=== PATIENT | female | born 1995 | race Caucasian/White ===

== ENCOUNTER 2017-03-21 21:08 | Inpatient (IN) ==
--- NOTE | 2017-03-21 21:49 | Emergency Department Note ---
Disposition Clinical Impression: Pyelonephritis Disposition: Admitted As Inpatient Condition: Good Referrals: Zachary,Angeles Guy CNP [Primary Care Provider] - Forms: ED Satisfaction Letter, Work/School Release General Adult HPI - General Chief complaint: ED Abdominal Pain Stated complaint: right side pain,fever,vomiting Source: patient Limitations: no limitations Nursing Notes Reviewed: Yes Vital Signs Reviewed: Yes - History of Present Illness HPI Narrative: Patient seen it [facility] earlier today. Seen today for right flank pain. Positive CVA tenderness. No abdominal tenderness. Worse with movement. Better with rest. Radiation of pain into the abdomen. Patient was diagnosed with a urinary tract infection and concern for pyelonephritis. At the time the patient was not having a fever and her nausea was controlled. She arrived home and spiked a temperature of 101. The patient vomited and was unable to keep water down. Presents tachycardic with a heart rate of 120. The patient's previous lab work as well as renal ultrasound were evaluated. Patient was brought in for pyelonephritis failed outpatient management. Pain Scale: 7 - Related Data Home Medications Medication Instructions Recorded Confirmed Pedi Mv No.79/Ferrous Fumarate 1 tab PO DAILY 03/21/17 03/21/17 [Flintstones with Iron Tab Chew] Previous Rx's Medication Instructions Recorded Metoclopramide [Reglan] 10 mg PO Q8H PRN 5 Days #15 tablet 03/21/17 Metoclopramide [Reglan] 10 mg PO TID PRN #200 mls 03/21/17 cephALEXin [Keflex] 500 mg PO TID 14 Days #42 capsule 03/21/17 Allergies Allergy/AdvReac Type Severity Reaction Status Date / Time No Known Allergies Allergy Verified 02/01/17 11:13 Review of Systems: CONSTITUTIONAL: Fevers and chills and weakness and fatigue HEENT: Eyes: No visual changes. Ears, Nose, Throat: No hearing loss, difficulty talking or unable to swallow. SKIN: No rash or itching. CARDIOVASCULAR: No chest pain, chest pressure or chest discomfort. No palpitations or edema. RESPIRATORY: No shortness of breath, cough or sputum. GASTROINTESTINAL: No anorexia, nausea, vomiting or diarrhea. No abdominal pain or blood. Right-sided flank pain. GENITOURINARY: Urinary frequency without burning. NEUROLOGICAL: No headache, dizziness, syncope, paralysis, ataxia, numbness or tingling in the extremities. No change in bowel or bladder control. MUSCULOSKELETAL: No muscle pain, back pain, joint pain or stiffness. Past Medical History - Past Medical History Medical history: Reports: SVT Psychiatric history: Reports: anxiety, depression WEB DEVELOPMENT INTERN history: Reports: no WEB DEVELOPMENT INTERN history : 2 Para: 0 Ab: 1 - Social History Smoking Status: Never smoker Smokeless Tobacco Status: No Alcohol use: Reports: none Drug use: Reports: none Physical Exam General appearance: NAD, conversant Eyes: anicteric sclerae, moist conjunctivae; PERRL HENT: Atraumatic; oropharynx clear with moist mucous membranes and no mucosal ulcerations Neck: Normal inspection; Trachea midline; FROM, supple Lungs: CTA, with normal respiratory effort and no intercostal retractions CV: RRR, no MRGs Abdomen: Soft, non-tender; no rebound or gaurding; positive right-sided CVA tenderness. Extremities: No peripheral edema or extremity lymphadenopathy Skin: Normal temperature; no rash, ulcers or lesions Psych: Appropriate mood and affect Neuro: alert and oriented to person, place and time - General General appearance: alert, in no apparent distress Course - Consultations Consultation #1: Discussed with Dr. Still. Patient accepted for admission. Time: 21:57 Vital Signs Temperature 100.3 F H 03/21/17 21:30 Pulse Rate 125 03/21/17 21:30 Respiratory Rate 20 03/21/17 21:30 Blood Pressure 99/50 03/21/17 21:30 O2 Sat by Pulse Oximetry 100 03/21/17 21:30 Temperature 100.3 F H 03/21/17 21:30 Pulse Rate 125 03/21/17 21:30 Respiratory Rate 20 03/21/17 21:30 Blood Pressure 99/50 03/21/17 21:30 O2 Sat by Pulse Oximetry 100 03/21/17 21:30 Oxygen Delivery Oxygen Delivery Room Air Medical Decision Making - Lab Data Lab Results 03/21/17 03/21/17 Range/Units 21:45 21:45 Urine Color Yellow (Yellow) Urine Clarity Cloudy A (Clear) Urine pH 6.0 (5.0-8.0) pH Units Ur Specific [place] 1.015 (1.010-1.025) Urine Protein Trace (Neg-Trace) mg/dL Urine Glucose (UA) Normal (Normal) mg/dL Urine Ketones >=160 H (Negative) mg/dL Urine Blood Trace H (Negative) Urine Nitrite Positive A (Negative) Urine Bilirubin Negative (Negative) Urine Urobilinogen Normal (Normal) mg/dL Ur Leukocyte Esterase Large H (Negative) Urine Microscopic RBC 0-3 (0-3) per hpf Urine Microscopic WBC TNTC H (0-3) per hpf Ur Squamous Epith Cells Many H (None-Few) per lpf Urine Bacteria Many H (None-Few) per hpf Hyaline Casts None Seen (None-Few) per lpf Urine Test Positive A (Negative)
[2017-03-21 21:53] LABS: Bilirubin,Urine Negative (Negative); Blood,Urine Trace (Negative); Clarity,Urine Cloudy (Clear); Color,Urine Yellow (Yellow); Glucose,Urine (UA) Normal (Normal); Ketones,Urine >=160 mg/dL (Negative); Leukocyte Esterase,Urine Large (Negative); Nitrite,Urine Positive (Negative); Protein,Urine Trace mg/dL (Neg-Trace); Specific Gravity,Urine 1.015 (1.010-1.025); Urobilinogen,Urine Normal (Normal)
[2017-03-21] MEDS ORDERED: 0.9 % Sodium Chloride 1,000 ML IVC ONE (21:53)
[2017-03-21] MEDS ORDERED: *HR* Promethazine 25 MG/ML VIAL IVP ONE (21:54)
[2017-03-21 21:55] LABS: Bacteria,Urine Many per hpf (None-Few); Hyaline Casts,Urine None Seen per lpf (None-Few); RBC,Urine 0-3 per hpf (0-3); Squamous Epithelial Cell,Urine Many per lpf (None-Few); WBC,Urine TNTC per hpf (0-3)
--- NOTE | 2017-03-21 21:55 | Emergency Department Note ---
START Narrative - START START: I examined this patient and my medical decision-making was reviewed with the Resident Physician. I agree with the documented findings, disposition and treatment plan as described except to the extent set forth below. Patient was independently seen and evaluated by myself. Patient was seen with the emergency medicine resident Ozzy Angel. Please see copy of her notes for details of this ED encounter management and disposition. Briefly: 21-year-old female seen earlier in the day for pyelonephritis she is she was given antiemetics analgesics and antibiotics. Patient is become sicker unable to keep medicine down with increasing pain. She was febrile and borderline hypotensive. Patient with IV fluids IV antibiotics will be admitted for failure of outpatient treatment for and pyelonephritis. Patient to be admitted in stable condition
[2017-03-22] MEDS ORDERED: Ondansetron 4 MG/2 ML VIAL IVP PRN (00:51)
[2017-03-22] MEDS ORDERED: Acetaminophen 325 MG TABLET PO PRN (00:53)
--- NOTE | 2017-03-22 00:59 | OB/GYN History & Physical ---
Date of Encounter: 03/22/17 Time of Encounter: 00:55 Assessment and Plan (1) 14 weeks gestation of Current visit: Yes Status: Acute Normal u/s earlier today. (2) Hyperemesis gravidarum Current visit: Yes Status: Acute Will give IV Zofran. (3) Pyelonephritis Current visit: Yes Status: Acute Pt with normal WBC but UA and exam suspicious for Pyelonephritis. She failed home tx with 2 admissions to ER today b/c of n/v and fever. Will give Rocephin daily. and recheck WBC in am. (4) RUQ pain Current visit: Yes Status: Acute Likely secondary to pyelonephitis. She had normal RUQ u/s. History of Present Illness Chief complaint: right flank pain HPI: Ms. Catherine is a 21 year old female female at 14w2d presents with c/o right flank pain, n/v and fever and chills. This has been complicated by hyperemesis which had recently been somewhat better. For last few days has been having Rt CVAT and now with radiation into RUQ. She has had inability to keep PO down for last couple of days despite antiemetics. This evening she had fever and bilious emesis. She denies dysuria, she does report frequency and urine is cloudy. She has not yet movement. Earlier today she was in ER and had normal RUQ u/s, Rt renal u/s and u/s. Her WBC count was normal and she had no fever therefore she was first sent home for attempted out patient tx. Past Med Surg Social Fam HX - Past Medical History Source: patient, old records reviewed Medical history: SVT Psychiatric history: anxiety, depression - Social History Smoking Status: Never smoker Smokeless Tobacco Status: No Alcohol use: none Drug use: none Obstetrical History - Pregnancies : 1 Medications and Allergies Metoclopramide [Reglan] 10 mg PO Q8H PRN 5 Days #15 tablet 03/21/17 [Rx] Metoclopramide [Reglan] 10 mg PO TID PRN #200 mls 03/21/17 [Rx] Pedi Mv No.79/Ferrous Fumarate [Flintstones with Iron Tab Chew] 1 tab PO DAILY 03/21/17 [History] cephALEXin [Keflex] 500 mg PO TID 14 Days #42 capsule 03/21/17 [Rx] 3 Allergy/AdvReac Type Severity Reaction Status Date / Time No Known Allergies Allergy Verified 02/01/17 11:13 Exam - Vital Signs Vital signs: Initial Vital Signs Temp Pulse Resp BP Pulse Ox 100.3 F H 125 20 99/50 100 03/21/17 21:30 03/21/17 21:30 03/21/17 21:30 03/21/17 21:30 03/21/17 21:30 - Constitutional Constitutional: well developed, no acute distress - HEENT HEENT: EOMI, PERRL, Mucus Membranes Dry - Neck Neck exam: full ROM - Lungs Respiratory exam: CTAB - Cardiovascular Cardiovascular exam: RRR - Abdomen Abdomen: Present: gravid, non tender Abdomen detail: right upper quadrant: tenderness - Extremities Extremities exam: full ROM Deep Tendon Reflex Grade: 2+ Normal - Comments Comments: Pt has right CVAT Results Abnormal lab results Urine Clarity Cloudy (Clear) A 03/21/17 21:45 Urine Ketones >=160 mg/dL (Negative) H 03/21/17 21:45 Urine Blood Trace (Negative) H 03/21/17 21:45 Urine Nitrite Positive (Negative) A 03/21/17 21:45 Ur Leukocyte Esterase Large (Negative) H 03/21/17 21:45 Urine Microscopic WBC TNTC per hpf (0-3) H 03/21/17 21:45 Ur Squamous Epith Cells Many per lpf (None-Few) H 03/21/17 21:45 Urine Bacteria Many per hpf (None-Few) H 03/21/17 21:45 Urine Test Positive (Negative) A 03/21/17 21:45 All other labs normal.
[2017-03-22] MEDS ORDERED: *HR* HYDROcodone/Acet 5/325 mg TABLET PO PRN (01:05)
[2017-03-22] MEDS: D5% in Lactated Ringers 1,000 ML IVC SCH ×3 (01:37→18:12)
[2017-03-22] MEDS: *HR* HYDROmorphone (PF) 1 MG/ML SYRINGE IVP PRN ×3 (04:54→19:22)
[2017-03-22 05:40] LABS: Basophils % 0.3 %; Eosinophils % 0.3 %; Hematocrit 29.2 % (35.3-44.9); Immature Granulocytes % 0.4 % (0-4); Lymphocytes % 14.9 %; Mean Corpuscular HGB Conc 34.2 g/dL (31.6-35.5); Mean Corpuscular Hemoglobin 30.8 pg (28.0-33.3); Mean Corpuscular Volume 89.8 fL (83.0-100.0); Mean Platelet Volume 10.5 fL (9.4-12.4); Monocytes # 0.6 K/mcL (0.0-1.3); Monocytes % 9.2 %; Neutrophils # 5.1 K/mcL (1.6-8.9); Platelet Count 141 K/mcL (140-400); Red Blood Count 3.25 M/mcL (3.82-4.97); Red Cell Distribution Width 13.7 % (11.5-14.5); Segmented Neutrophils % 74.9 %
--- NOTE | 2017-03-22 07:33 | OB/GYN Progress Note ---
Date of Encounter: 03/22/17 Time of Encounter: 07:30 - Assessment and Plan (1) 14 weeks gestation of Current Visit: Yes Status: Acute Normal u/s earlier today. (2) Hyperemesis gravidarum Current Visit: Yes Status: Acute Will give IV Zofran. 03/22- Pt s/p IV Zofran and tolerating some liquids and dry cereal this am. Will cont. IVF. (3) Pyelonephritis Current Visit: Yes Status: Acute Pt with normal WBC but UA and exam suspicious for Pyelonephritis. She failed home tx with 2 admissions to ER today b/c of n/v and fever. Will give Rocephin daily. and recheck WBC in am 03/22 07:34- Pt AF since 23:34 last pm. Still with significant rt CVAT. Will cont. IVF. Cont. pain medications as needed. (4) RUQ pain Current Visit: Yes Status: Acute Likely secondary to pyelonephitis. She had normal RUQ u/s. 03/22 07:30- RUQ pain resolved. Subjective - Subjective Principal diagnosis: pyelonephritis at 14 weeks EGA Interval history: Pt without further chills, still with significant right flank pain and she received Dilaudid at 05:00. Has been able to tolerate dry diet this am. Objective - Vital Signs Vital Signs: Vital Signs Temp Pulse Resp BP Pulse Ox 03/22/17 05:08 98.5 F 72 18 109/67 100 03/22/17 00:52 98.8 F 76 20 85/45 96 03/21/17 23:37 100.6 F H 91 20 89/50 98 03/21/17 22:23 16 104/62 Intake and Output 03/21/17 03/21/17 03/22/17 15:59 23:59 07:59 Intake Total 1000 / 1000 Output Total 750 / 750 Balance 250 / 250 Intake: IV Fluids 1000 / 1000 0.9 % Sodium Chloride 1,000 ML 1000 / 1000 @ 3750 mls/hr IVC .Q16M ONE Rx# :[id number] Output: Urine 750 / 750 Other: Stool Characteristics Normal for Patient - Exam FHR: auscultation normal Auscultation: bilateral: normal Abdomen: Present: soft Comments: + rt CVAT - Labs Labs: Abnormal lab results RBC 3.25 M/mcL (3.82-4.97) L 03/22/17 05:26 Hgb 10.0 g/dL (11.5-15.4) L D 03/22/17 05:26 Hct 29.2 % (35.3-44.9) L 03/22/17 05:26 Urine Clarity Cloudy (Clear) A 03/21/17 21:45 Urine Ketones >=160 mg/dL (Negative) H 03/21/17 21:45 Urine Blood Trace (Negative) H 03/21/17 21:45 Urine Nitrite Positive (Negative) A 03/21/17 21:45 Ur Leukocyte Esterase Large (Negative) H 03/21/17 21:45 Urine Microscopic WBC TNTC per hpf (0-3) H 03/21/17 21:45 Ur Squamous Epith Cells Many per lpf (None-Few) H 03/21/17 21:45 Urine Bacteria Many per hpf (None-Few) H 03/21/17 21:45 Urine Test Positive (Negative) A 03/21/17 21:45
[2017-03-22] MEDS: cefTRIAXone 1,000 MG in Water for inj. (sterile) 10 ML IVP SCH (09:04)
[2017-03-23] MEDS: D5% in Lactated Ringers 1,000 ML IVC SCH (02:20)
[2017-03-23] MEDS: *HR* HYDROmorphone (PF) 1 MG/ML SYRINGE IVP PRN (04:44)
[2017-03-23] MEDS ORDERED: HYDROcodone/Acet 5-217 mg/10mL 10 ML UDC PO PRN (08:57)
[2017-03-23] MEDS: cefTRIAXone 1,000 MG in Water for inj. (sterile) 10 ML IVP SCH (09:03)
--- NOTE | 2017-03-23 10:27 | Discharge Summary ---
Date of Encounter: 03/23/17 Time of Encounter: 10:29 - Discharge Diagnosis (1) 14 weeks gestation of Priority: Secondary Status: Acute Comments: FHT 132 BPM via doppler this am. (2) Hyperemesis gravidarum Priority: Secondary Status: Acute Comments: Pt doing well on zofran. (3) Pyelonephritis Priority: Primary Status: Acute Comments: Pain has improved. Discharge home on Keflex liquid with precautions. Follow-up culture results. - Discharge Medications Home Medications: Metoclopramide [Reglan] 10 mg PO Q8H PRN 5 Days #15 tablet 03/21/17 [Rx] Metoclopramide [Reglan] 10 mg PO TID PRN #200 mls 03/21/17 [Rx] Pedi Mv No.79/Ferrous Fumarate [Flintstones with Iron Tab Chew] 1 tab PO DAILY 03/21/17 [History] cephALEXin [Keflex] 500 mg PO TID 14 Days #42 capsule 03/21/17 [Rx] Allergies/Adverse Reactions: 3 Allergy/AdvReac Type Severity Reaction Status Date / Time No Known Allergies Allergy Verified 02/01/17 11:13 Data Procedures and tests throughout hospitalization: Laboratory Tests 03/22/17 05:26 WBC 6.8 RBC 3.25 L Hgb 10.0 L D Hct 29.2 L MCV 89.8 MCH 30.8 MCHC 34.2 RDW 13.7 Plt Count 141 MPV 10.5 Immature Gran % 0.4 Seg Neutrophils % 74.9 Lymphocytes % 14.9 Monocytes % 9.2 Eosinophils % 0.3 Basophils % 0.3 Neutrophils # 5.1 Lymphocytes # 1.0 Monocytes # 0.6 Eosinophils # 0.0 Basophils # 0.0 Date of admission: 03/21/17 21:57 Primary care physician: Angeles Sharma CNP Discharging clinician: Helene Carranza Anticipated date of discharge: 03/23/17 - Patient Status Disposition: Home, Self-Care Condition: Good Functional capacity at discharge: independent ambulation Overall status at discharge: patient is progressing back to baseline - Discharge Instructions Follow Up With: Angeles Sharma CNP [Primary Care Provider] - Jean Claude Still MD [Partnered Physician] - - Diet and Activity Activity: increase activity as tolerated Diet: regular diet 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 She received IV rocephin and dilaudid for pain. Her pain improved and she will be discharged home once tolerating PO antibiotics and PO pain medication. Culture pending. Will follow-up sensitivity to confirm appropriate treatment. Time Attestation: Total time spent providing and/or coordinating discharge services: Time Spent: Less than 30 minutes Exam - Constitutional Vitals: Temp Pulse Resp BP Pulse Ox 98.3 F 72 12 100/59 98 03/23/17 07:45 03/23/17 07:45 03/23/17 07:45 03/23/17 07:45 03/23/17 07:45 General appearance IM: A&O X 3, pleasant, no acute distress - Respiratory Respiratory exam: Present: CTAB - Cardiovascular Cardiovascular exam IM: Present: RRR, +S1, +S2 - GI/Abdominal GI/Abdominal exam IM: soft - Additional comments: below umbilicus, appropriate for gestational age - Extremities Exam Extremities exam IM: Present: normal inspection - Neurological Exam Neurological exam: normal gait, oriented X3 - Other Additional findings: + right CVAT
[2017-03-23] MEDS ORDERED: cephALEXin 250 MG/5 ML UDC PO SCH (10:30)
[2017-03-23 11:44] VITALS: BP 101/62
== END 2017-03-23 15:15 | disposition home or self-care (01) | DRG 781 ==
LOC: 1NENUOBS 21:08 → EMEROO 21:08 → 1NENUOBS 22:24 → UNDODISOB 03-23 15:15
PROVIDERS: ADMIT Obstetrics & Gynecology; ATTEND Obstetrics & Gynecology

== ENCOUNTER 2017-09-11 22:25 | Inpatient (IN) ==
[2017-09-11 17:30] LABS: Amphetamine Screen,Urine Negative ng/mL (Cutoff=1000); Barbiturate Screen,Urine Negative ng/mL (Cutoff=200); Benzodiazepines Screen,Urine Negative ng/mL (Cutoff=200); Cannabinoid Screen,Urine Negative ng/mL (Cutoff = 50); Cocaine Screen,Urine Negative ng/mL (Cutoff= 300); Opiate Screen,Urine Negative ng/mL (Cutoff=300); Phencyclidine Screen,Urine Negative ng/mL (Cutoff=25)
--- NOTE | 2017-09-11 18:34 | OB/GYN Progress Note ---
Date of Encounter: 09/11/17 Time of Encounter: 18:27 - Assessment and Plan (1) 39 weeks gestation of Current Visit: Yes Status: Acute (2) Amniotic fluid leaking Current Visit: Yes Status: Acute Nitrazine negative. Pooling negative. Fern negative. SVE /-1. Will allow pt to ambulate and repeat SVE in 1-2 hours. Plan for discharge home if no cervical change. Subjective - Subjective Interval history: 22 year-old presenting at 39w1d by 9 week US with c/o a gush of clear fluid at 1400 and some cramping since this am. She does admit to intercourse yesterday. She denies bleeding or other complaints. Good FM. She gets care with Dr. Grant and was supposed to be induced today but they are full in L&D at [facility] so she is waiting on a bed to be available. She reports this has been uncomplicated. No medical problems. She takes flinstone vitamins. No other medications. No tobacco, alcohol or drug use. Antepartum ROS: loss of fluid, movement normal, contractions, no vaginal bleeding Objective - Vital Signs Vital Signs: Intake and Output 09/11/17 09/11/17 09/11/17 07:59 15:59 23:59 Other: Weight 67.2 kg Patient Weight 09/11/17 23:59 Weight 67.2 kg - Exam FHR: category 1 FHR comments: NST reactive Auscultation: bilateral: normal Abdomen: Present: soft, gravid Uterus: Absent: tenderness Cervical dilation: 3 Cervix effacement: 90 station: -1 Comments: SSE with negative nitrazine, negative pooling, negative fern. Some thick, clear , cervical mucus noted at cervical os
[~2017-09-11 22:25] MED LIST: *HR* Nalbuphine 10 MG/ML AMPUL IM ONE; Famotidine 20 MG/2 ML VIAL IVP PRN; Metoclopramide 10 MG/2 ML VIAL IVP PRN; Naloxone 0.4 MG/ML INJ IVP PRN; Ondansetron 4 MG/2 ML VIAL IVP PRN
[2017-09-11] MEDS ORDERED: Ringers Solution, Lactated 1,000 ML IVC SCH (22:30)
[2017-09-11] MEDS ORDERED: Ringers Solution, Lactated 1,000 ML ONE (22:39)
[2017-09-11 22:51] LABS: Basophils % 0.1 %; Eosinophils % 0.1 %; Hemoglobin 11.2 g/dL (11.5-15.4); Immature Granulocytes % 0.6 % (0-4); Lymphocytes # 1.3 K/mcL (0.6-4.6); Lymphocytes % 8.3 %; Mean Corpuscular HGB Conc 32.9 g/dL (31.6-35.5); Mean Corpuscular Hemoglobin 26.6 pg (28.0-33.3); Mean Corpuscular Volume 80.8 fL (83.0-100.0); Monocytes # 0.9 K/mcL (0.0-1.3); Monocytes % 6.1 %; Platelet Count 224 K/mcL (140-400); Red Blood Count 4.21 M/mcL (3.82-4.97); Segmented Neutrophils % 84.8 %
[2017-09-11] MEDS ORDERED: *HR* FentaNYL (PF) 100 MCG/2 ML VIAL EP ONE (23:17)
[2017-09-11] MEDS ORDERED: Bupivacaine-MPF 0.25% 10 ML VIAL EP ONE (23:17)
[2017-09-11] MEDS ORDERED: Bupivacaine-MPF 0.25% 10 ML VIAL ONE (23:18)
[2017-09-11] MEDS ORDERED: *HR* FentaNYL (PF) 100 MCG/2 ML VIAL ONE (23:18)
[2017-09-11] MEDS ORDERED: Epidural Premix (fent/bupiv) 110 ML EP ONE (23:22)
[2017-09-11] MEDS ORDERED: Epidural Premix (fent/bupiv) 110 ML EP SCH (23:30)
--- NOTE | 2017-09-11 23:53 | Anesthesia Evaluation PreOp ---
Date of Encounter: 09/11/17 Time of Encounter: 23:51 - Past History Planned Operation: ZOYA Cardiac History: Arrhythmia (h/o SVT s/p ablation; asymptomatic until recently with this . Saw analytics specialist who, per patient, was not concerned) Pulmonary History: Denies Any Significant HX RADIUS GRINDER History: Denies Any Significant HX Other Medical History: Denies Any Significant HX Anesthesia History: No Prior Anesthetic Complications (pt never had NA; pt unsure if she's ever had GA; denies family h/o GA complications) : Yes Test: Positive Alcohol Use: none Drug use: none Medications and Allergies Pedi Mv No.79/Ferrous Fumarate [Flintstones with Iron Tab Chew] 1 tab PO DAILY 09/11/17 [History] 3 Allergy/AdvReac Type Severity Reaction Status Date / Time No Known Allergies Allergy Verified 09/11/17 16:39 - Meds/Allergy Pre-op Review Medications Reviewed: Yes Allergies Reviewed: Yes Beta Blockers on Current Med List: No Anesthesia Results - Labs 09/11/17 22:27 Anesthesia Exam 129/89, HR 72, RR 24 Height: 1.6m Weight: 67kg NPO (# of Hours): solids > 8hrs Pain Scale: 10 Pain Scale Used: Yen-Gonzalez (Faces) - HEENT Pupil (Motor): Pupils equal Mallampati: II Teeth: Normal Oral Opening: Greater than 3 - RADIUS GRINDER LOC: Oriented RADIUS GRINDER Motor: Normal RUE, Normal LUE, Normal RLE, Normal LLE, Normal Face RADIUS GRINDER Sensory: Normal: RUE, LUE, RLE, LLE, Face - Cardiac Rhythm: Regular Murmur: None - Pulmonary Breath Sounds: bilateral Clear Respiratory Effort: Symmetrical Anesthesia Assess/Plan ASA Score: 2 Modified [place] Scale for Level of Consciousness: Anixous, agitated or restless Anesthetic Plan: Regional Autologous Blood: No Monitoring Plan: Standard Monitors Recovery Plan: Other
--- NOTE | 2017-09-11 23:56 | Anesthesia Procedures ---
Date of Encounter: 09/11/17 Time of Encounter: 23:55 Procedures: Anesthesia - Epidural/Spinal Patient ID/Chart reviewed: Yes Patient examined: Yes OB Eval: Gestational age: 39 weeks 1 day OB Eval: : 2 OB Eval: Hx Para: 0 OB Eval: Contractions: Non-stressed pattern Consent Obtained: Yes Supplemental Oxygen: None/Room Air Site Prep: Aseptic Technique, Sterile prep and drape, Povidone-Iodine 1% Patient position: upright Local Anesthetic: Lidocaine 1% Amount of Local Anesthetic used: 3 Touhy Needle Gauge: 18 Touhy Needle Depth (cm): 4 Catheter Depth at Skin (cm): 9 Test Dose (1.5% Lido + Epi): Volume given (mls): 5 Test Dose Result: Negative Loading Dose: 0.25% Marcaine (mls): 5 Loading Dose: Fentanyl (mcg): 100 Loading Dose Administered: Thru Catheter Infusion Med: 0.125% Bupivacaine w/ 2 mcg/ml Fentanyl Catheter Secured in Place: Tegaderm, Tape Interspace Used: L4-L5 Loss of Resistance (VIVIAN): Yes Blood: No CSF: No Paresthesia: No Procedure: successful on 1st attempt; patient tolerated procedure well Vitals + FHT's: please see Anni RAMIREZ's electronic record for VS entry
--- NOTE | 2017-09-12 00:21 | OB/GYN History & Physical ---
Date of Encounter: 09/12/17 Time of Encounter: 00:21 Assessment and Plan (1) 39 weeks gestation of Current visit: Yes Status: Acute (2) Spontaneous onset of labor Current visit: Yes Status: Acute Admit for expectant management. Epidural as requested. Anticipate . History of Present Illness Chief complaint: leaking/contractions HPI: 22 year-old presenting at 39w1d by 9 week US with c/o a gush of clear fluid at 1400 and some cramping since this am. She does admit to intercourse yesterday. She denies bleeding or other complaints. SHe is having regular contractions. Good FM. She gets care with Dr. Grant and was supposed to be induced today but they are full in L&D at [place] [facility] so she is waiting on a bed to be available. She reports this has been uncomplicated. No medical problems. She takes flinstone vitamins. No other medications. No tobacco, alcohol or drug use. In triage she was found to be making cervical change. Past Med Surg Social Fam HX - Past Medical History Medical history: SVT Psychiatric history: anxiety, depression - Social History Smoking Status: Never smoker Smokeless Tobacco Status: No Alcohol use: none Drug use: none - Family History Mother Adopted: No Living Status: Still Living Hx Family Medical Disorders: Yes (arthritis in eye) Obstetrical History - Pregnancies : 2 Para: 0 Ab's: 1 Medications and Allergies Pedi Mv No.79/Ferrous Fumarate [Flintstones with Iron Tab Chew] 1 tab PO DAILY 09/11/17 [History] 3 Allergy/AdvReac Type Severity Reaction Status Date / Time No Known Allergies Allergy Verified 09/11/17 16:39 Review of System OB All systems PM: reviewed and no additional remarkable complaints except as stated Exam - Constitutional Constitutional: well developed, well nourished - Lungs Respiratory exam: CTAB - Cardiovascular Cardiovascular exam: RRR, +S1, +S2 - Abdomen Abdomen: Present: gravid, non tender - Extremities Extremities exam: normal inspection - Vulva Vulva: bilateral: normal - Cervix Dilation: 5 Effacement: 100 (BBOW) Station: 0 - Anus/Rectum Anus/Rectum: Present: normal perianal skin Results Result Diagrams: 09/11/17 22:27 Abnormal lab results WBC 15.3 K/mcL (4.3-11.1) H 09/11/17 22:27 Hgb 11.2 g/dL (11.5-15.4) L 09/11/17: Hct 34.0 % (35.3-44.9) L 09/11/17: MCV 80.8 fL (83.0-100.0) L 09/11/17: MCH 26.6 pg (28.0-33.3) L 09/11/17: RDW 15.0 % (11.5-14.5) H 09/11/17: Neutrophils # 13.0 K/mcL (1.6-8.9) H 09/11/17: All other labs normal. - VTE Reasons for not Prescribing Prophylaxis: Treatment not Indicated - Low risk for VTE
[2017-09-12] MEDS ORDERED: Oxytocin 20 units/ LR 1000 mL 20 UNIT/1,000 ML BAG IVC ONE (02:11)
--- NOTE | 2017-09-12 03:01 | OB/GYN Procedure Note ---
Delivery - Delivery Date: 09/12/17 Provider: Helene Carranza Intrapartum events: none Delivery induction: AROM Delivery augmentation: rupture of membranes Delivery monitor: external FHT, external uterine, internal FHT Anesthesia: intravenous, epidural Estimated Blood Loss: 100 - (s) A Infant Delivery Date: 09/12/17 Delivery Time: 02:34 Presentation: vertex Gender: Male Viability: Viable Pounds: 7 Ounces: 10 Weight Gram: 3.46 kg at 1 minute: 9 at 5 mins: 9 Shoulder Dystocia: not encountered Specimens collected: cord blood Placenta: spontaneous Cord: 3 umbilical vessels - Repair Episiotomy: none Laceration Description: Superficial - Complications Delivery complications: none Delivery comments: Pt progressed well and pushed effectively to for viable male "Weinstein" weighing 7lbs 10oz with apgars 9 at one minute and 9 at five minutes. After pulsations ceased the cord was clamped and cut and the placenta delivered spontaneous and intact (merritt). No nuchal or shoulder dystocia was encountered. Multiple superficial lacerations were noted to be hemostatic. No repair needed. EBL 100ml. Mother and baby stable in DR following procedure. - Disposition Mom disposition: stable in LDR disposition: stable in LDR
[2017-09-12] MEDS ORDERED: Oxytocin 20 units/ LR 1000 mL 20 UNIT/1,000 ML BAG IVC SCH (06:10)
[2017-09-12] MEDS ORDERED: Acetaminophen 325 MG TABLET PO PRN (06:10)
[2017-09-12] MEDS ORDERED: Benzocaine/Menthol 56 GM AEROSOL SPRAY TP PRN (06:10)
[2017-09-12] MEDS ORDERED: Lanolin 7 G OINT...G. TP PRN (06:10)
[2017-09-12] MEDS ORDERED: Measles/Mumps/Rubella Vacc 0.5 ML VIAL SQ PRN (06:10)
[2017-09-12] MEDS: Prenatal Vit/FA 1 EACH TABLET PO SCH (09:27)
[2017-09-12] MEDS: Ibuprofen 600 MG TABLET PO PRN ×2 (09:27→19:55)
[2017-09-13] MEDS: Ibuprofen 600 MG TABLET PO PRN (07:49)
[2017-09-13] MEDS: Prenatal Vit/FA 1 EACH TABLET PO SCH (07:49)
[2017-09-13 08:01] VITALS: BP 130/84
--- NOTE | 2017-09-13 08:49 | Discharge Summary ---
Date of Encounter: 09/13/17 Time of Encounter: 08:44 - Discharge Diagnosis (1) Vaginal delivery Priority: Primary Status: Acute Comments: Pt states feels well, breast and bottle feeding, bleeding minimal, pain well controlled on po pain medication. - Discharge Medications Prescriptions: Ibuprofen [Motrin] 600 mg PO Q6HR PRN #60 tablet PRN Reason: Cramping Docusate [Colace] 100 mg PO BID #60 capsule Home Medications: Pedi Mv No.79/Ferrous Fumarate [Flintstones with Iron Tab Chew] 1 tab PO DAILY 09/11/17 [History] Acetaminophen [Tylenol] 650 mg PO Q6HR PRN tablet 09/13/17 [Rx] Benzocaine/Menthol [place] [Dermoplast [place]] 1 appl TP QID PRN aerosol 09/13/17 [Rx] Docusate [Colace] 100 mg PO BID #60 capsule 09/13/17 [Rx] Ibuprofen [Motrin] 600 mg PO Q6HR PRN #60 tablet 09/13/17 [Rx] Lanolin [Lansinoh] 1 appl TP Q4HR PRN oint...g. 09/13/17 [Rx] Vit/FA 1 each PO DAILY tablet 09/13/17 [Rx] Allergies/Adverse Reactions: 3 Allergy/AdvReac Type Severity Reaction Status Date / Time No Known Allergies Allergy Verified 09/11/17 16:39 Data Procedures and tests throughout hospitalization: Laboratory Tests 09/11/17 09/11/17 16:48 22:27 WBC 15.3 H RBC 4.21 Hgb 11.2 L Hct 34.0 L MCV 80.8 L MCH 26.6 L MCHC 32.9 RDW 15.0 H Plt Count 224 MPV 12.0 Immature Gran % 0.6 Seg Neutrophils % 84.8 Lymphocytes % 8.3 Monocytes % 6.1 Eosinophils % 0.1 Basophils % 0.1 Neutrophils # 13.0 H Lymphocytes # 1.3 Monocytes # 0.9 Eosinophils # 0.0 Basophils # 0.0 Urine Opiates Screen Negative Ur Barbiturates Screen Negative Ur Phencyclidine Scrn Negative Ur Amphetamines Screen Negative U Benzodiazepines Scrn Negative Urine Cocaine Screen Negative U Marijuana (THC) Screen Negative Date of admission: 09/11/17 22:25 Consults: 09/12/17 06:10 Consult to Traffic Analyst [CONS] Routine Comment: Vaginal delivery, consult needed Consult to Window Display Designer [CONS] Routine Reason for SW Consult: marijuana Discharging clinician: Hellen Galaviz Anticipated date of discharge: 09/13/17 - Patient Status Disposition: Home, Self-Care Condition: Good Functional capacity at discharge: independent ambulation Overall status at discharge: patient is progressing back to baseline - Discharge Instructions Follow Up With: Kev Grant MD [Non-Partnered Physician] - Additional Instructions: LABOR AND DELIVERY DISCHARGE INSTRUCTIONS Signs and Symptoms to be Reported to your Doctor Immediately: * Sudden gush, continuous or intermittent lead of fluid from vagina (note the time of gush and color of fluid) * Onset of bright red vaginal bleeding with or without pain (if you had a vaginal exam during this visit you may notice some dark red spotting. This is normal.) * Lower abdominal cramping or backache that is premenstrual-like feeling. * More than 6 contractions in one hour. * Burning during urination, having to urinate more frequently or pain in your mid-back. * A change in the baby's activity. This could be an increase or decrease in activity. * Severe headache which does not go away with tylenol. * Sudden swelling in the face, hands, arms and/or legs. * Upper abdominal pain - sometimes associated with heartburn or nausea and is not relieved by Maalox, Mylanta or Tums. * Dizziness or blurred vision or visual disturbances (seeing stars/lights). * Kick Counts One hour after a meal, lay down on one side in a quiet place. Count the number of renee the baby moves during an hour. If less than 6 movements, notify your physician. Diet: *Force fluids - 8-10 tall glasses of fluid per day. May include popsicles and jello. *Limit caffeine - this includes chocolate, coffee, tea, any soft drink containing such as all debbie, Pete Yellow and Mountain Dew - Diet and Activity Activity: resume usual activities as tolerated Diet: regular diet Hospital Course Reason for admission: active labor Delivery: Episiotomy: none Laceration: none Other procedures: none complications: none Discharge diagnosis: IUP at term delivered baby: male Hospital course: Delivery - Delivery Date: 09/12/17 Provider: Helene Carranza Intrapartum events: none Delivery induction: AROM Delivery augmentation: rupture of membranes Delivery monitor: external FHT, external uterine, internal FHT Anesthesia: intravenous, epidural Estimated Blood Loss: 100 - Infant (s) Infant A Infant Delivery Date: 09/12/17 Infant Delivery Time: 02:34 Presentation: vertex Gender: Male Viability: Viable Pounds: 7 Ounces: 10 Weight Gram: 3.46 kg at 1 minute: 9 at 5 mins: 9 Shoulder Dystocia: not encountered Specimens collected: cord blood Placenta: spontaneous Cord: 3 umbilical vessels - Repair Episiotomy: none Laceration Description: Superficial - Complications Delivery complications: none Delivery comments: Pt progressed well and pushed effectively to [facility] for viable male "Js" weighing 7lbs 10oz with apgars 9 at one minute and 9 at five minutes. After pulsations ceased the cord was clamped and cut and the placenta delivered spontaneous and intact (merritt). No nuchal or shoulder dystocia was encountered. Multiple superficial lacerations were noted to be hemostatic. No repair needed. EBL 100ml. Mother and baby stable in DR following procedure. - Disposition Mom disposition: stable in PP and appropriate for discharge. Time Attestation: Total time spent providing and/or coordinating discharge services: Time Spent: Less than 30 minutes Exam - Constitutional Vitals: Temp Pulse Resp BP Pulse Ox 98.9 F 71 16 130/84 98 09/13/17 08:00 09/13/17 08:00 09/13/17 08:00 09/13/17 08:00 09/13/17 08:00 General appearance IM: A&O X 3 - Respiratory Respiratory exam: Present: CTAB - Cardiovascular Cardiovascular exam IM: Present: RRR - GI/Abdominal GI/Abdominal exam IM: soft - Uterine Tone: Firm Uterus Position: 1 Finger Below Umbilicus - Extremities Exam Extremities exam IM: Present: normal capillary refill, normal inspection - Neurological Exam Neurological exam: normal gait, oriented X3 - Psychiatric Additional comments: Reports good mood.
== END 2017-09-13 09:09 | disposition home or self-care (01) | DRG 775 ==
LOC: 1NENULAB → 1NENUOBS 09-12 05:54
PROVIDERS: ADMIT Registered Nurse; ATTEND Registered Nurse

== ENCOUNTER → 2018-12-25 19:21 | Observation (INO) ==
[2018-12-25 17:57] LABS: Bilirubin,Urine Negative (Negative); Blood,Urine Negative (Negative); Clarity,Urine Cloudy (Clear); Color,Urine Yellow (Yellow); Glucose,Urine (UA) Normal (Normal); Ketones,Urine Negative (Negative); Leukocyte Esterase,Urine Trace (Negative); Nitrite,Urine Positive (Negative); PH,Urine 6.5 pH Units (5.0-8.0); Protein,Urine 100 mg/dL (Neg-Trace); Specific Gravity,Urine 1.027 (1.010-1.025); Urobilinogen,Urine Normal (Normal)
[2018-12-25 17:59] LABS: Bacteria,Urine Many per hpf (None-Few); Hyaline Casts,Urine Moderate per lpf (None-Few); Squamous Epithelial Cell,Urine Many per lpf (None-Few); WBC,Urine 30-50 per hpf (0-3)
[2018-12-25 18:08] LABS: Amphetamine Screen,Urine Negative ng/mL (Cutoff=1000); Barbiturate Screen,Urine Negative ng/mL (Cutoff=200); Benzodiazepines Screen,Urine Negative ng/mL (Cutoff=200); Cannabinoid Screen,Urine Negative ng/mL (Cutoff = 50); Cocaine Screen,Urine Negative ng/mL (Cutoff= 300); Opiate Screen,Urine Negative ng/mL (Cutoff=300); Phencyclidine Screen,Urine Negative ng/mL (Cutoff=25)
[~2018-12-25 19:21] MED LIST changes: -*HR* Nalbuphine 10 MG/ML AMPUL IM ONE; +CefTRIAXone 1,000 MG VIAL IM ONE; -Famotidine 20 MG/2 ML VIAL IVP PRN; -Metoclopramide 10 MG/2 ML VIAL IVP PRN; -Naloxone 0.4 MG/ML INJ IVP PRN; -Ondansetron 4 MG/2 ML VIAL IVP PRN
== END | disposition home or self-care (01) ==
LOC: 1NENULAB
PROVIDERS: ADMIT Advanced Practice Midwife; ATTEND Advanced Practice Midwife

== ENCOUNTER 2019-01-15 07:12 | Inpatient (IN) ==
[2019-01-15] MEDS ORDERED: Ringers Solution, Lactated 1,000 ML IVC SCH (07:30)
[2019-01-15] MEDS ORDERED: Ondansetron 4 MG/2 ML VIAL IVP PRN (07:30)
[2019-01-15] MEDS ORDERED: *HR* Nalbuphine 10 MG/ML AMPUL IVP PRN (07:30)
[2019-01-15] MEDS ORDERED: Metoclopramide 10 MG/2 ML VIAL IVP PRN (07:30)
[2019-01-15] MEDS ORDERED: Famotidine 20 MG/2 ML VIAL IVP PRN (07:30)
[2019-01-15] MEDS ORDERED: Naloxone 0.4 MG/ML INJ IVP PRN (07:30)
[2019-01-15] MEDS ORDERED: Lidocaine 1% 20 ML MDV INFILT PRN (07:30)
[2019-01-15 07:47] LABS: Basophils % 0.5 %; Eosinophils # 0.1 K/mcL (0.0-0.6); Eosinophils % 0.9 %; Hematocrit 32.4 % (35.3-44.9); Hemoglobin 10.3 g/dL (11.5-15.4); Immature Granulocytes % 0.5 % (0-4); Lymphocytes # 2.3 K/mcL (0.6-4.6); Lymphocytes % 28.9 %; Mean Corpuscular HGB Conc 31.8 g/dL (31.6-35.5); Mean Corpuscular Hemoglobin 24.1 pg (28.0-33.3); Mean Corpuscular Volume 75.9 fL (83.0-100.0); Mean Platelet Volume 11.7 fL (9.4-12.4); Monocytes # 0.8 K/mcL (0.0-1.3); Monocytes % 9.9 %; Neutrophils # 4.7 K/mcL (1.6-8.9); Platelet Count 196 K/mcL (140-400); Red Blood Count 4.27 M/mcL (3.82-4.97); Red Cell Distribution Width 15.8 % (11.5-14.5); Segmented Neutrophils % 59.3 %
[2019-01-15] MEDS ORDERED: *HR* FentaNYL (PF) 100 MCG/2 ML VIAL EP ONE (07:52)
[2019-01-15] MEDS ORDERED: EPHEDrine 50 MG/ML VIAL IVP PRN (07:52)
[2019-01-15] MEDS ORDERED: Bupivacaine-MPF 0.25% 10 ML VIAL EP ONE (07:52)
--- NOTE | 2019-01-15 07:59 | OB/GYN History & Physical ---
Date of Encounter: 01/15/19 Time of Encounter: 07:57 Assessment and Plan (1) 39 weeks gestation of Current visit: Yes Status: Acute The patient has received regular care with Dr. Still (2) Spontaneous onset of labor Current visit: Yes Status: Acute The patient was scheduled for an induction of labor but came with onset of contractions at 03 100 and active labor with cervical change. She reports she was 3 cm in the office on 01/11. She is receiving an epidural for pain management per request. Amniotomy will be performed with anticipation of vaginal delivery after epidural placement and comfort confirmation. (3) Recurrent urinary tract infection affecting in third trimester Current visit: Yes Status: Acute The patient grows Escherichia coli which has resistance to multiple antibiotics. She was treated with IM Rocephin and placed on Macrobid as prophylaxis. Urine culture to be obtained when Matthew is placed after epidural. The patient is currently asymptomatic (4) Anemia affecting in third trimester Current visit: Yes Status: Acute Mild anemia in . Start iron after delivery and recheck CBC History of Present Illness Chief complaint: In Labor HPI: Ms. Catherine is a 23 year old female with an EDC of 01/22/19 x 7 week 6 day ultrasound and a history of 2 spontaneous abortions who presents at 39 weeks with spontaneous onset of contractions/labor at 0300. She is scheduled for an induction of today at 8 AM that arise prior to that at 6 cm per RN. She has had no vaginal bleeding or loss of fluid. has been complicated by anemia and recurrent UTIs with Escherichia coli resistant to multiple antibiotics. She was started on Macrobid for prophylaxis but has continued to have Escherichia coli UTIs. Urine culture will be obtained today. She is requesting an epidural. Fetus has been active. She has not been on any iron supplementation prior to arrival. She is known blood type of A+, she is rubella immune, varicella immune and has hepatitis B nonreactive. She has received care with Dr. Still. Past Med Surg Social Fam HX - Past Medical History Attestation: Yes The following information was validated with the patient. Source: patient, old records reviewed Medical history: SVT Additional medical history: SVT status cardiac ablation x 2 Psychiatric history: anxiety, depression - Past Surgical History Surgical History: other Additional surgical history: cardiac ablation x2, tonsillectomy - Social History Smoking Status: Never smoker Smokeless Tobacco Status: No Alcohol use: none Drug use: none Current living situation: Home - Independent Activity Level: Independent ambulation - Family History Mother Adopted: No Living Status: Still Living Hx Family Cardiac Disorders: No Hx Family Respiratory Disorders: No Hx Family Cancer: No Hx Family GI Disorders: No Hx Family Endocrine Disorder: No Hx Family Neuromuscular Disorders: No Hx Family Neurologic Disorders: No Hx Family HEENT Disorders: No Hx Family Autoimmune Disorders: No Obstetrical History - Pregnancies : 4 Term: 1 Ab's: 2 Medications and Allergies No Known Home Drugs 01/15/19 [History] Allergy/AdvReac Type Severity Reaction Status Date / Time No Known Allergies Allergy Verified 09/11/17 16:39 Review of System OB All systems PM: reviewed and no additional remarkable complaints except as stated - Constitutional Constitutional ROS IM: weight gain - Gastrointestinal Gastrointestinal: cramping Exam - Vital Signs Vital signs: Afebrile, vital signs stable. heart tones 120s, CAT 1. Contractions are every 1-2 minutes spontaneous - Constitutional Constitutional: well developed, well nourished, average body habitus, mild distress - HEENT HEENT: Normocephaly, Mucus Membranes Moist - Neck Neck exam: normal inspection, supple - Lungs Respiratory exam: CTAB - Cardiovascular Cardiovascular exam: RRR - Abdomen Abdomen: Present: gravid, non tender - Extremities Extremities exam: normal inspection, warm Deep Tendon Reflex Grade: 3+ Normal But Brisk - Cervix Dilation: 6 (Per RN) Results Result Diagrams: 01/15/19 07:35 Abnormal lab results Hgb 10.3 g/dL (11.5-15.4) L 01/15/19 07:35 Hct 32.4 % (35.3-44.9) L 01/15/19 07:35 MCV 75.9 fL (83.0-100.0) L 01/15/19 07:35 MCH 24.1 pg (28.0-33.3) L 01/15/19 07:35 RDW 15.8 % (11.5-14.5) H 01/15/19 07:35 All other labs normal. - VTE Reasons for not Prescribing Prophylaxis: Treatment not Indicated - Low risk for VTE
[2019-01-15] MEDS ORDERED: Epidural Premix (fent/bupiv) 110 ML EP SCH (08:00)
[2019-01-15] MEDS ORDERED: Epidural Premix (fent/bupiv) 110 ML EP ONE (08:01)
--- NOTE | 2019-01-15 08:33 | Anesthesia Evaluation PreOp ---
Date of Encounter: 01/15/19 Time of Encounter: 08:00 - Past History Planned Operation: ZOYA Cardiac History: Arrhythmia (h/o SVT but now s/p ablation x 2) Pulmonary History: Denies Any Significant HX SLOT AMBASSADOR History: Denies Any Significant HX Other Medical History: Denies Any Significant HX Anesthesia History: No Prior Anesthetic Complications, Past Anesthesia (ZOYA x1, Tonsillectomy, cardiac ablation x 2) : Yes Alcohol Use: none Drug use: none Medications and Allergies No Known Home Drugs 01/15/19 [History] Allergy/AdvReac Type Severity Reaction Status Date / Time No Known Allergies Allergy Verified 09/11/17 16:39 - Meds/Allergy Pre-op Review Medications Reviewed: Yes Allergies Reviewed: Yes Beta Blockers on Current Med List: No Anesthesia Results - Labs 01/15/19 07:35 Anesthesia Exam 125/84, HR 80 O2 Sat Height 1.6 m Weight 65.453 kg NPO (# of Hours): solids > 8hrs Pain Scale: 10 Pain Scale Used: YenMahesh (Faces) - HEENT Pupil (Motor): Pupils equal Mallampati: II Oral Opening: Greater than 3 - SLOT AMBASSADOR LOC: Oriented SLOT AMBASSADOR Motor: Normal RUE, Normal LUE, Normal RLE, Normal LLE, Normal Face SLOT AMBASSADOR Sensory: Normal: RUE, LUE, RLE, LLE, Face - Cardiac Rhythm: Regular Murmur: None - Pulmonary Breath Sounds: bilateral Clear Respiratory Effort: Symmetrical Anesthesia Assess/Plan ASA Score: 2 Level of consciousness: Cooperative, Oriented, Restless Anesthetic Plan: Epidural Autologous Blood: No Monitoring Plan: Standard Monitors Recovery Plan: Other
--- NOTE | 2019-01-15 08:36 | Anesthesia Procedures ---
Date of Encounter: 01/15/19 Time of Encounter: 08:33 Procedures: Anesthesia - Epidural/Spinal Patient ID/Chart reviewed: Yes Patient examined: Yes OB Eval: Gestational age: 39 weeks 0 days OB Eval: : 3 OB Eval: Hx Para: 1 OB Eval: Dilated at (cm): 6 OB Eval: Contractions: Non-stressed pattern Consent Obtained: Yes Supplemental Oxygen: None/Room Air Site Prep: Aseptic Technique, Sterile prep and drape, 0.5% Chlorhexidine/Alcohol Patient position: upright Local Anesthetic: Lidocaine 1% Amount of Local Anesthetic used: 3 Touhy Needle Gauge: 18 Touhy Needle Depth (cm): 5 Catheter Depth at Skin (cm): 11 Test Dose (1.5% Lido + Epi): Volume given (mls): 5 Test Dose Result: Negative Loading Dose: 0.25% Marcaine (mls): 5 Loading Dose: Fentanyl (mcg): 100 Loading Dose Administered: Thru Catheter Infusion Med: 0.125% Bupivacaine w/ 2 mcg/ml Fentanyl Infusion Rate (mls/hr): 14 (w/ demand bolus of 5mL q30min PRN) Catheter Secured in Place: Tegaderm, Tape Interspace Used: L3-L4 Loss of Resistance (VIVIAN): Yes Blood: No CSF: No Paresthesia: No Procedure: successful on 1st attempt; patient tolerated procedure well; VSS Vitals + FHT's: see JAMES Chandra's electronic records for VS entry
[2019-01-15 09:59] LABS: Amphetamine Screen,Urine Negative ng/mL (Cutoff=1000); Barbiturate Screen,Urine Negative ng/mL (Cutoff=200); Benzodiazepines Screen,Urine Negative ng/mL (Cutoff=200); Cannabinoid Screen,Urine Negative ng/mL (Cutoff = 50); Cocaine Screen,Urine Negative ng/mL (Cutoff= 300); Opiate Screen,Urine Negative ng/mL (Cutoff=300); Phencyclidine Screen,Urine Negative ng/mL (Cutoff=25)
[2019-01-15] MEDS ORDERED: Oxytocin 20 units/ LR 1000 mL 20 UNIT/1,000 ML BAG IVC ONE ×3 (10:31→15:50)
[2019-01-15] MEDS ORDERED: Ropivacaine/PF 0.2% 20 ML VIAL ONE (11:20)
[2019-01-15] MEDS ORDERED: *HR* FentaNYL (PF) 100 MCG/2 ML VIAL ONE (11:20)
--- NOTE | 2019-01-15 11:30 | Anesthesia Progress Note ---
Date of Encounter: 01/15/19 Time of Encounter: 11:26 Anesthesia Note - Note Note: called to patient bedside to evaluate breakthrough pain; earlier patient had reported only one "hot spot" in RLQ of abdomen but now patient reports pain & pressure bilateral abdomen. Also BLE motor blockade resolving. Catheter removed to 9cm noe and serosanguinous fluid noted upon aspiration. Patient had positive ECG response to 5mL of test dose. Catheter then removed to 8cm noe, no blood aspirated, and negative response to 5mL of test dose so 5mL of 0.2% ropivicaine + 100mcg fentanyl administered through catheter. Patient reports significant improvement in pain. VSS 01/15/19 11:26
--- NOTE | 2019-01-15 11:36 | OB Labor Progress Note ---
Date of Encounter: 01/15/19 Time of Encounter: 11:34 Labor Progress Note - Subjective Subjective: The patient has had intermittent comfort with her epidural. She has been discussing with anesthesia about having it replaced in redone. She has been 9 cm per RN. - Vital Signs Vital Signs: Afebrile, vital signs stable - Cervix Cervix: 9/90/0, vertex with bulging bag of water - Heart Tones Heart Tones: 140s baseline, CAT 1 - [place]: Contractions every one to 2 minutes, spontaneous - Interventions Interventions: 39 week IUP in spontaneous labor. - Plan Plan: Amniotomy, small amount of clear fluid seen. Redo epidural. Anticipate vaginal delivery
--- NOTE | 2019-01-15 14:52 | OB/GYN Procedure Note ---
Delivery - Delivery Date: 01/15/19 Provider: Kimmy Zapien Intrapartum events: none Delivery induction: none Delivery monitor: external FHT, external uterine Anesthesia: epidural - (s) Infant A Infant Delivery Date: 01/15/19 Delivery Time: 14:31 Presentation: vertex Position: KENISHA Route of delivery: Gender: Male Viability: Viable Pounds: 8 Ounces: 5 Weight Gram: 3.79 kg at 1 minute: 9 at 5 mins: 10 Shoulder Dystocia: not encountered Placenta: spontaneous Cord: 3 umbilical vessels - Repair Episiotomy: none Laceration Description: Superficial (Labial internal and external, perineal) - Complications Delivery complications: none Delivery comments: The patient was complete and pushing with epidural anesthesia with a spontaneous vaginal delivery in the KENISHA position of a vigorous male weighing 8 lbs._ oz. with Apgars of 9 at 1 minute and 10 at 5 minutes. was placed on the maternal abdomen and handed to the nursery care team. The cord was clamped and cut after pulsations ceased. Cord blood obtained. The placenta was delivered spontaneous and intact. Three-vessel cord confirmed. There were superficial perineal lacerations which were hemostatic an unrepaired. There were medial labial and lateral labial superficial lacerations which were hemostatic and not repaired. No vaginal lacerations noted. No cervical lacerations identified. Estimated blood loss 50 mL, complications none. Both mother and were recovering in stable condition in the LDR - Disposition Mom disposition: stable in LDR disposition: stable in LDR
[2019-01-15] MEDS ORDERED: Oxytocin 20 units/ LR 1000 mL 20 UNIT/1,000 ML BAG IVC SCH (18:01)
[2019-01-15] MEDS: Ibuprofen 600 MG TABLET PO SCH (18:20)
[2019-01-15] MEDS: Acetaminophen 325 MG TABLET PO SCH (19:00)
[2019-01-16] MEDS: Ibuprofen 600 MG TABLET PO SCH
[2019-01-16] MEDS: Acetaminophen 325 MG TABLET PO SCH ×2 (04:28)
[2019-01-16 08:11] VITALS: BP 116/76
[2019-01-16] MEDS ORDERED: Prenatal Vit/FA 1 EACH TABLET PO SCH (09:00)
--- NOTE | 2019-01-16 10:55 | Discharge Summary ---
Date of Encounter: 01/16/19 Time of Encounter: 10:53 - Discharge Diagnosis (1) Vaginal delivery Priority: Primary Status: Acute Comments: Stable, meeting all PP milestones, pain well managed, , desires discharge. (2) Recurrent urinary tract infection affecting in third trimester Priority: Secondary Status: Acute Comments: current culture incubating - Discharge Medications Prescriptions: New Ferrous Sulfate 325 mg PO DAILY #30 tablet Acetaminophen [Tylenol] 650 mg PO Q6HR tablet Ibuprofen [Motrin] 600 mg PO Q6HR #60 tablet Docusate [Colace] 100 mg PO BID #30 capsule Home Medications: Acetaminophen [Tylenol] 650 mg PO Q6HR tablet 01/16/19 [Rx] Docusate [Colace] 100 mg PO BID #30 capsule 01/16/19 [Rx] Ferrous Sulfate 325 mg PO DAILY #30 tablet 01/16/19 [Rx] Ibuprofen [Motrin] 600 mg PO Q6HR #60 tablet 01/16/19 [Rx] Allergies/Adverse Reactions: Allergy/AdvReac Type Severity Reaction Status Date / Time No Known Allergies Allergy Verified 09/11/17 16:39 Data Procedures and tests throughout hospitalization: Laboratory Tests 01/15/19 01/15/19 07:30 07:35 WBC 8.0 RBC 4.27 Hgb 10.3 L Hct 32.4 L MCV 75.9 L MCH 24.1 L MCHC 31.8 RDW 15.8 H Plt Count 196 MPV 11.7 Immature Gran % 0.5 Seg Neutrophils % 59.3 Lymphocytes % 28.9 Monocytes % 9.9 Eosinophils % 0.9 Basophils % 0.5 Neutrophils # 4.7 Lymphocytes # 2.3 Monocytes # 0.8 Eosinophils # 0.1 Basophils # 0.0 Urine Opiates Screen Negative Ur Buprenorphine Scrn Negative Ur Barbiturates Screen Negative Ur Phencyclidine Scrn Negative Ur Amphetamines Screen Negative U Benzodiazepines Scrn Negative Urine Cocaine Screen Negative U Marijuana (THC) Screen Negative Ur Drug Screen Interp See Below Labs on day of discharge: Preliminary micro results at discharge 01/15/19 09:10 Urine Culture - Preliminary Urine,Matthew [place] Culture is incubating. Date of admission: 01/15/19 07:12 Consults: 01/15/19 18:01 Consult to Agency Development Manager [CONS] Routine Comment: Vaginal delivery, consult needed Discharging clinician: Hellen Galaviz Anticipated date of discharge: 01/16/19 - Patient Status Disposition: Home, Self-Care Condition: Good Functional capacity at discharge: independent ambulation Overall status at discharge: patient is progressing back to baseline - Discharge Instructions - Diet and Activity Activity: resume usual activities as tolerated Diet: regular diet Hospital Course Reason for admission: active labor Delivery: Episiotomy: none Laceration: other Other procedures: none complications: none Discharge diagnosis: IUP at term delivered baby: male Hospital course: Delivery - Delivery Date: 01/15/19 Provider: Kimmy Zapien Intrapartum events: none Delivery induction: none Delivery monitor: external FHT, external uterine Anesthesia: epidural - (s) A Delivery Date: 01/15/19 Delivery Time: 14:31 Presentation: vertex Position: KENISHA Route of delivery: Gender: Male Viability: Viable Pounds: 8 Ounces: 5 Weight Gram: 3.79 kg at 1 minute: 9 at 5 mins: 10 Shoulder Dystocia: not encountered Placenta: spontaneous Cord: 3 umbilical vessels - Repair Episiotomy: none Laceration Description: Superficial (Labial internal and external, perineal) - Complications Delivery complications: none Delivery comments: The patient was complete and pushing with epidural anesthesia with a spontaneous vaginal delivery in the KENISHA position of a vigorous male weighing 8 lbs._ oz. with Apgars of 9 at 1 minute and 10 at 5 minutes. Infant was placed on the maternal abdomen and handed to the nursery care team. The cord was clamped and cut after pulsations ceased. Cord blood obtained. The placenta was delivered spontaneous and intact. Three-vessel cord confirmed. There were superficial perineal lacerations which were hemostatic an unrepaired. There were medial labial and lateral labial superficial lacerations which were hemostatic and not repaired. No vaginal lacerations noted. No cervical lacerations identified. Estimated blood loss 50 mL, complications none. Both mother and were recovering in stable condition in the LDR - Disposition Mom disposition: stable in PP and appropriate for discharge. Time Attestation: Total time spent providing and/or coordinating discharge services: Time Spent: Less than 30 minutes Exam - Constitutional Vitals: Temp Pulse Resp BP Pulse Ox 97.7 F 55 16 116/76 98 01/16/19 08:10 09/15/19 08:10 01/16/19 08:10 01/16/19 08:10 01/16/19 01:30 General appearance IM: A&O X 3 - Respiratory Respiratory exam: Present: CTAB - Cardiovascular Cardiovascular exam IM: Present: RRR - GI/Abdominal GI/Abdominal exam IM: soft - Uterus Position: At Umbilicus - Extremities Exam Extremities exam IM: Present: normal capillary refill, normal inspection - Neurological Exam Neurological exam: normal gait, oriented X3 - Psychiatric Additional comments: reports good mood
== END 2019-01-16 15:45 | disposition home or self-care (01) | DRG 807 ==
LOC: 1NENULAB 07:12 → 1NENUOBS 17:33
PROVIDERS: ADMIT Obstetrics & Gynecology; ATTEND Obstetrics & Gynecology

== ENCOUNTER 2020-09-08 04:27 | Observation (INO) ==
[2020-09-08 01:09] LABS: Bacteria,Urine Few per hpf (None-Few); Bilirubin,Urine Negative (Negative); Blood,Urine Negative (Negative); Budding Yeast,Urine Moderate per hpf (None Seen); Clarity,Urine Turbid (Clear); Color,Urine Light-Yellow (Yellow); Glucose,Urine (UA) Normal (Normal); Ketones,Urine Negative (Negative); Leukocyte Esterase,Urine Large (Negative); Mucus,Urine Few per lpf (None-Few); Nitrite,Urine Positive (Negative); Protein,Urine 30 mg/dL (Neg-Trace); Specific Gravity,Urine 1.016 (1.010-1.025); Squamous Epithelial Cell,Urine Many per hpf (None-Few); Urobilinogen,Urine Normal (Normal); WBC,Urine 30-50 per hpf (0-3)
[2020-09-08 03:23] LABS: Basophils % 0.2 %; Eosinophils % 0.2 %; Hematocrit 30.3 % (35.3-44.9); Hemoglobin 9.9 g/dL (11.5-15.4); Immature Granulocytes % 0.3 % (0-4); Lymphocytes # 0.9 K/mcL (0.6-4.6); Lymphocytes % 8.9 %; Mean Corpuscular HGB Conc 32.7 g/dL (31.6-35.5); Mean Corpuscular Hemoglobin 27.9 pg (28.0-33.3); Mean Corpuscular Volume 85.4 fL (83.0-100.0); Mean Platelet Volume 11.7 fL (9.4-12.4); Monocytes # 0.8 K/mcL (0.0-1.3); Monocytes % 8.3 %; Neutrophils # 8.1 K/mcL (1.6-8.9); Platelet Count 208 K/mcL (140-400); Red Blood Count 3.55 M/mcL (3.82-4.97); Red Cell Distribution Width 13.3 % (11.5-14.5); Segmented Neutrophils % 82.1 %; White Blood Count 9.8 K/mcL (4.3-11.1)
[~2020-09-08 04:27] MED LIST changes: +Acetaminophen 325 MG TABLET PO ONE; -CefTRIAXone 1,000 MG VIAL IM ONE; +Ondansetron 4 MG/2 ML VIAL IVP PRN; +Ondansetron ODT 4 MG TAB.RAPDIS SL ONE; +Ringers Solution, Lactated 1,000 ML ONE; +Ringers Solution, Lactated 500 ML IVC ONE; +cefTRIAXone 1,000 MG in 0.9 % Sodium Chloride Mini Bag 100 ML IVPB ONE
[2020-09-08] MEDS ORDERED: Ondansetron 4 MG/2 ML VIAL IVP PRN (04:32)
[2020-09-08] MEDS: Ringers Solution, Lactated 1,000 ML IVC SCH ×3 (06:48→21:08)
[2020-09-08] MEDS: *HR* HYDROcodone/Acet 5/325 mg TABLET PO PRN ×2 (08:39→21:10)
[2020-09-08] MEDS: Acetaminophen 325 MG TABLET PO PRN (16:49)
[2020-09-08] MEDS ORDERED: cefTRIAXone 1,000 MG in 0.9 % Sodium Chloride Mini Bag 100 ML IVPB SCH (18:00)
[2020-09-09] MEDS: Acetaminophen 325 MG TABLET PO PRN (07:30)
[2020-09-09 11:56] VITALS: BP 98/62
== END 2020-09-09 15:35 | disposition home or self-care (01) ==
LOC: 1NENULAB → 1NENUOBS 04:27
PROVIDERS: ADMIT Obstetrics & Gynecology; ATTEND Obstetrics & Gynecology

== ENCOUNTER 2020-12-17 02:35 | Inpatient (IN) ==
[2020-12-17] MEDS ORDERED: Ringers Solution, Lactated 1,000 ML ONE (02:40)
[2020-12-17] MEDS ORDERED: Metoclopramide 10 MG/2 ML VIAL IVP PRN (02:44)
[2020-12-17] MEDS ORDERED: Naloxone 0.4 MG/ML INJ IVP PRN (02:44)
[2020-12-17] MEDS ORDERED: *HR* Nalbuphine 10 MG/ML AMPUL IV PRN (02:44)
[2020-12-17] MEDS ORDERED: Ondansetron 4 MG/2 ML VIAL IVP PRN (02:44)
[2020-12-17] MEDS ORDERED: Famotidine 20 MG/2 ML VIAL IVP PRN (02:44)
[2020-12-17] MEDS ORDERED: Ringers Solution, Lactated 1,000 ML IVC SCH (02:45)
[2020-12-17 03:10] LABS: Basophils # 0.1 K/mcL (0.0-0.2); Basophils % 0.6 %; Eosinophils # 0.1 K/mcL (0.0-0.6); Eosinophils % 1.2 %; Hematocrit 31.5 % (35.3-44.9); Hemoglobin 9.6 g/dL (11.5-15.4); Immature Granulocytes % 0.4 % (0-4); Lymphocytes # 2.8 K/mcL (0.6-4.6); Lymphocytes % 26.2 %; Mean Corpuscular HGB Conc 30.5 g/dL (31.6-35.5); Mean Corpuscular Hemoglobin 23.1 pg (28.0-33.3); Mean Corpuscular Volume 75.7 fL (83.0-100.0); Monocytes % 9.4 %; Neutrophils # 6.6 K/mcL (1.6-8.9); Platelet Count 269 K/mcL (140-400); Red Blood Count 4.16 M/mcL (3.82-4.97); Segmented Neutrophils % 62.2 %; White Blood Count 10.6 K/mcL (4.3-11.1)
[2020-12-17] MEDS ORDERED: Ondansetron 4 MG/2 ML VIAL IVP ONE (03:14)
[2020-12-17 03:20] LABS: Amphetamine Screen,Urine Negative ng/mL (Cutoff=1000); Barbiturate Screen,Urine Negative ng/mL (Cutoff=200); Benzodiazepines Screen,Urine Negative ng/mL (Cutoff=200); Cannabinoid Screen,Urine Negative ng/mL (Cutoff = 50); Cocaine Screen,Urine Negative ng/mL (Cutoff= 300); Opiate Screen,Urine Negative ng/mL (Cutoff=300); Phencyclidine Screen,Urine Negative ng/mL (Cutoff=25)
[2020-12-17] MEDS ORDERED: EPHEDrine 50 MG/ML VIAL IVP PRN (03:21)
[2020-12-17] MEDS ORDERED: Epidural Premix (fent/bupiv) 110 ML EP SCH (03:30)
[2020-12-17] MEDS ORDERED: Oxytocin 20 units/ LR 1000 mL 20 UNIT/1,000 ML BAG IVC ONE (05:40)
[2020-12-17] MEDS ORDERED: *HR* FentaNYL (PF) 100 MCG/2 ML VIAL ONE ×2 (05:52→05:55)
[2020-12-17] MEDS ORDERED: Prenatal Vit/FA 1 EACH TABLET PO SCH (09:13)
[2020-12-17] MEDS ORDERED: Acetaminophen 325 MG TABLET PO PRN (09:13)
[2020-12-17] MEDS ORDERED: Lanolin 7 G OINT...G. TP PRN (09:13)
[2020-12-17] MEDS ORDERED: Ibuprofen 600 MG TABLET PO PRN (09:13)
[2020-12-17] MEDS ORDERED: Oxytocin 20 units/ LR 1000 mL 20 UNIT/1,000 ML BAG IVC SCH (09:13)
[2020-12-17] MEDS ORDERED: Benzocaine/Menthol 56 GM AEROSOL SPRAY TP PRN (09:13)
[2020-12-17 10:50] VITALS: O2SAT 99
[2020-12-17 16:55] VITALS: BP 119/80; PULSE 72; TEMP 98.1
== END 2020-12-17 18:54 | disposition home or self-care (01) | DRG 806 ==
LOC: 1NENULAB → 1NENUOBS 08:36
PROVIDERS: ADMIT Registered Nurse; ATTEND Registered Nurse

== ENCOUNTER 2021-02-10 12:30 | Inpatient (IN) ==
[2021-02-10 13:16] LABS: Basophils % 0.6 %; Eosinophils # 0.2 K/mcL (0.0-0.6); Eosinophils % 2.2 %; Hematocrit 34.8 % (35.3-44.9); Hemoglobin 10.3 g/dL (11.5-15.4); Immature Granulocytes % 0.1 % (0-4); Lymphocytes # 2.3 K/mcL (0.6-4.6); Lymphocytes % 34.4 %; Mean Corpuscular HGB Conc 29.6 g/dL (31.6-35.5); Mean Corpuscular Hemoglobin 23.4 pg (28.0-33.3); Mean Corpuscular Volume 79.1 fL (83.0-100.0); Mean Platelet Volume 10.7 fL (9.4-12.4); Monocytes # 0.6 K/mcL (0.0-1.3); Monocytes % 8.5 %; Neutrophils # 3.6 K/mcL (1.6-8.9); Platelet Count 341 K/mcL (140-400); Red Cell Distribution Width 19.7 % (11.5-14.5); Segmented Neutrophils % 54.2 %; White Blood Count 6.7 K/mcL (4.3-11.1)
[2021-02-10 13:36] LABS: Acetaminophen < 10 mcg/mL (10-20); BUN/Creatinine Ratio 19 (6-26); Blood Urea Nitrogen 13 mg/dL (6-20); Calcium 9.8 mg/dL (8.6-10.3); Carbon Dioxide 26 mEq/L (23-29); Chloride 105 mEq/L (98-107); Ethanol < 10 mg/dL (Less than 10); Glucose 89 mg/dL (70-105); Osmolality,Calculated 286 (280-300); Potassium 3.7 mEq/L (3.5-5.1); Salicylate < 2.5 mg/dL (15.0-30.0); Sodium 138 mEq/L (136-145); eGFR For African Americans > 60 (> 60); eGFR For Non-African Americans > 60 (> 60)
[2021-02-10 14:46] LABS: Bacteria,Urine Few per hpf (None-Few); Bilirubin,Urine Negative (Negative); Blood,Urine Small (Negative); Clarity,Urine Turbid (Clear); Color,Urine Light-Yellow (Yellow); Glucose,Urine (UA) Normal (Normal); Ketones,Urine Negative (Negative); Leukocyte Esterase,Urine Large (Negative); Mucus,Urine Few per lpf (None-Few); Nitrite,Urine Negative (Negative); Protein,Urine Negative (Neg-Trace); Specific Gravity,Urine 1.012 (1.010-1.025); Squamous Epithelial Cell,Urine Moderate per hpf (None-Few); Urobilinogen,Urine Normal (Normal); WBC,Urine TNTC per hpf (0-3)
[2021-02-10] MEDS ORDERED: CefTRIAXone 1,000 MG VIAL IM ONE (14:59)
[2021-02-10 15:30] LABS: Amphetamine Screen,Urine Negative ng/mL (Cutoff=1000); Barbiturate Screen,Urine Negative ng/mL (Cutoff=200); Benzodiazepines Screen,Urine Negative ng/mL (Cutoff=200); Cannabinoid Screen,Urine Negative ng/mL (Cutoff = 50); Cocaine Screen,Urine Negative ng/mL (Cutoff= 300); Opiate Screen,Urine Negative ng/mL (Cutoff=300); Phencyclidine Screen,Urine Negative ng/mL (Cutoff=25)
[2021-02-10 18:08] LABS: Influenza A PCR Negative (Negative); Influenza B PCR Negative (Negative); Resp. Syncytial Virus PCR Negative (Negative)
[2021-02-10 18:12] LABS: SARS-CoV-2 by PCR (In House) Negative (Negative)
[2021-02-10] MEDS ORDERED: *HR* LORazepam 1 MG TABLET PO PRN (18:48)
[2021-02-10] MEDS ORDERED: haloperidoL 5 MG TABLET PO PRN (18:48)
[2021-02-10] MEDS ORDERED: Acetaminophen 325 MG TABLET PO PRN (18:48)
[2021-02-10] MEDS ORDERED: traZODone 50 MG TABLET PO PRN (18:48)
[2021-02-10] MEDS ORDERED: Ibuprofen 400 MG TABLET PO PRN (18:48)
[2021-02-10] MEDS ORDERED: *HR* LORazepam 2 MG/ML VIAL IM PRN (18:48)
[2021-02-10] MEDS ORDERED: hydrOXYzine pamoate 25 MG CAPSULE PO PRN (18:48)
[2021-02-10] MEDS ORDERED: Haloperidol Lactate 5 MG/ML VIAL IM PRN (18:48)
[2021-02-11] MEDS: cephALEXin 500 MG CAPSULE PO SCH ×2 (09:16→21:40)
[2021-02-11] MEDS ORDERED: MOM Conc 10 ML UD.LIQ PO PRN (10:47)
[2021-02-11] MEDS ORDERED: Mag Hydrox/Al Hydrox/Simeth 30 ML UDC PO PRN (10:47)
[2021-02-11 21:49] VITALS: O2SAT 100
[2021-02-12] MEDS: cephALEXin 500 MG CAPSULE PO SCH (08:40)
[2021-02-12 08:41] VITALS: BP 118/72; PULSE 70; TEMP 97.6
== END 2021-02-12 15:55 | disposition home or self-care (01) | DRG 776 ==
LOC: EMEROOARM 12:30 → 1ANU 18:45
PROVIDERS: ADMIT Psychiatry & Neurology Psychiatry; ATTEND Psychiatry & Neurology Psychiatry